=== PATIENT | male | born 1980 | race Caucasian/White ===

== ENCOUNTER 2019-12-27 00:46 | Emergency (ER) | payer OTHER, MEDICAID ==
[~2019-12-27] VITALS: Ht 188 cm; Wt 81.7 kg
[2019-12-27] MEDS ORDERED: HUMALOG100 UNIT/1 SUBQ (01:02)
[2019-12-27] MEDS ORDERED: XANAX1 MG PO (01:03)
[2019-12-27] MEDS ORDERED: FLONASE 0.05%50 MCG NARES (01:04)
[2019-12-27] MEDS ORDERED: CLARITIN10 M3 PO (01:05)
[2019-12-27] MEDS ORDERED: LANTUS SUBQ (01:05)
[2019-12-27 01:46] LABS: ABSOLUTE BASOPHILS 0.1 thou/uL (0.0-0.2); ABSOLUTE EOSINOPHILS 0.1 thou/uL (0.0-0.7); ABSOLUTE MONOCYTES 0.6 thou/uL (0.0-1.2); ABSOLUTE NEUTROPHILS 5.6 thou/uL (1.6-8.1); BASOPHILS 1.2 %; EOSINOPHILS 0.8 %; HEMATOCRIT 43.4 % (42.0-52.0); HEMOGLOBIN 15.9 gm/dL (14.0-18.0); LYMPHOCYTES 24.4 %; MCH 36.9 pg (26.0-34.0); MCHC 36.6 g/dL (28.0-37.0); MCV 100.8 fL (80.0-100.0); MONOCYTES 7.1 %; MPV 9.1 fl. (7.2-11.1); NUCLEATED RBCS 0 /100WBC; PLATELET COUNT* 227 thou/uL (150-400); POLYS 66.5 %; RDW-CV 12.9 % (10.5-14.5); WBC 8.3 thou/uL (4.0-11.0)
[2019-12-27 01:55] LABS: CALCIUM 9.2 mg/dL (8.5-10.1); CREATININE 1.2 mg/dL (0.6-1.3); POTASSIUM 3.6 mmol/L (3.5-5.1)
[2019-12-27 02:00] LABS: ALBUMIN 4.4 g/dL (3.4-5.0); TOTAL BILIRUBIN 1.3 mg/dL (<0.1-1.0); TOTAL PROTEIN 8.1 g/dL (6.4-8.2)
[2019-12-27] MEDS ORDERED: PERCOCET 5-3251 EACH PO (02:40)
[2019-12-27 03:34] VITALS: BP 160/79
== END 2019-12-27 03:34 | disposition home or self-care (01) ==
LOC: M.ERS 00:46
PROVIDERS: Family Medicine
DX: S52.592A Other fractures of lower end of left radius, initial encounter for closed fracture (principal); F10.129 Alcohol abuse with intoxication, unspecified; Y90.3 Blood alcohol level of 60-79 mg/100 ml; E11.43 Type 2 diabetes mellitus with diabetic autonomic (poly)neuropathy; K31.84 Gastroparesis; J45.909 Unspecified asthma, uncomplicated; Z79.4 Long term (current) use of insulin; W18.39XA Other fall on same level, initial encounter; Y93.89 Activity, other specified; Y92.89 Other specified places as the place of occurrence of the external cause; Y99.8 Other external cause status